=== PATIENT | female | born 1960 | race American Indian/Alaskan Native ===

== ENCOUNTER 2020-04-13 13:24 | Emergency (ER) | payer MEDICAID ==
[2020-04-13] MEDS ORDERED: ZIPRASIDONE MESYLATE 20 MG VIAL IM ONE (14:04)
[2020-04-13 17:27] LABS: Basophils % (Auto) 0.1 % (0.0-1.8); Hematocrit 39.7 % (30.3-42.9); Hemoglobin 13.1 gm/dl (10.1-14.3); Lymphocytes # (Auto) 2.2 K/mm3 (1.2-5.4); Lymphocytes % (Auto) 37.8 % (13.4-35.0); Mean Corpuscular HGB Conc 33 % (30-34); Mean Corpuscular Volume 94 fl (79-97); Monocytes # (Auto) 0.4 K/mm3 (0.0-0.8); Monocytes % (Auto) 7.8 % (0.0-7.3); Platelet Count 274 K/mm3 (140-440); Red Blood Count 4.21 M/mm3 (3.65-5.03); Red Cell Distribution Width 13.8 % (13.2-15.2)
[2020-04-13 17:46] LABS: Blood Urea Nitrogen 26 mg/dL (7-17); Calcium 9.1 mg/dL (8.4-10.2); Hemolysis Index 8
[2020-04-13 17:56] LABS: BUN/Creatinine Ratio 37
--- NOTE | 2020-04-13 18:33 | Emergency Department Report ---
ED Psych HPI - General Chief Complaint: Medical Clearance Stated Complaint: MED CLEARANCE Time Seen by Provider: 04/13/20 13:52 Source: patient, family Mode of arrival: Ambulatory Limitations: Altered Mental Status - History of Present Illness Initial Comments: 60-year-old female the past medical history of dementia, hypertension, and bipolar disorder is brought in by her daughter for progressively worsening combative behavior. Patient has been exhibiting this behavior for the last 2 years but has been Uncontrollable and worse for the last 2 months. Daughter states medications were adjusted as an outpatient without improvement. Patient is not agreeable to physical examination and is refusing to speak to me. Patient is however agitated while daughter is giving history of present illness. - Related Data Home Medications Medication Instructions Recorded Confirmed Last Taken Cyanocobalamin [Vitamin B-12] 100 mcg PO DAILY 04/13/20 04/13/20 Unknown Doxepin [SINEquan] 25 mg PO BID 04/13/20 04/13/20 Unknown Lisinopril/Hydrochlorothiazide 10 - 12.5 mg PO QDAY 04/13/20 04/13/20 Unknown Previous Rx's Medication Instructions Recorded Last Taken Type ALBUTEROL NEB's [Proventil 0.083% 2.5 mg IH TID PRN #30 neb 08/15/13 Unknown Rx NEBS] Loratadine (Nf) [Claritin] 10 mg PO DAILY #20 tablet 08/15/13 Unknown Rx Allergies Allergy/AdvReac Type Severity Reaction Status Date / Time No Known Allergies Allergy Verified 08/15/13 21:34 ED Review of Systems ROS: Stated complaint: MED CLEARANCE Other details as noted in HPI Comment: Unobtainable due to pts medical conditions ED Past Medical Hx - Past Medical History Previous Medical History?: Yes Hx Hypertension: Yes Hx Psychiatric Treatment: Yes (bipolar) Hx Dementia: Yes - Surgical History Past Surgical History?: No - Social History Smoking Status: Never Smoker Substance Use Type: None - Medications Home Medications: Home Medications Medication Instructions Recorded Confirmed Last Taken Type ALBUTEROL NEB's [Proventil 0.083% 2.5 mg IH TID PRN #30 neb 08/15/13 04/13/20 Unknown Rx NEBS] Loratadine (Nf) [Claritin] 10 mg PO DAILY #20 tablet 08/15/13 04/13/20 Unknown Rx Cyanocobalamin [Vitamin B-12] 100 mcg PO DAILY 04/13/20 04/13/20 Unknown History Doxepin [SINEquan] 25 mg PO BID 04/13/20 04/13/20 Unknown History Lisinopril/Hydrochlorothiazide 10 - 12.5 mg PO QDAY 04/13/20 04/13/20 Unknown History ED Physical Exam - General Limitations: Altered Mental Status - Other Other exam information: General: No acute distress Head: Atraumatic Eyes: normal appearance ENT: Moist mucous membranes Neck: Normal appearance, no midline tenderness Chest: Clear to auscultation bilaterally CV: Regular rate and rhythm Abdomen: Soft, normal bowel sounds, nontender, nondistended, no rebound or guarding Back: Normal inspection Extremity: Normal inspection, full range of motion Neuro: Alert no facial asymmetry, speech clear, no gross motor sensory deficit Psych: Disorganized, agitated, combative Skin: No rash ED Course Vital Signs 04/13/20 04/13/20 04/13/20 14:15 19:55 20:10 Temperature 97.9 F 97.5 F L Pulse Rate 79 95 H Respiratory 20 18 18 Rate Blood Pressure 135/75 141/85 [Left] O2 Sat by Pulse 98 97 97 Oximetry 04/14/20 04/14/20 04/14/20 01:05 09:46 19:54 Temperature 97.5 F L 98 F 98.5 F Pulse Rate 58 L 66 65 Respiratory 18 18 18 Rate Blood Pressure 156/94 124/82 141/81 [Left] O2 Sat by Pulse 100 98 100 Oximetry ED Medical Decision Making - Lab Data Result diagrams: 04/13/20 16:24 04/13/20 16:24 Lab Results 04/13/20 04/13/20 04/13/20 Range/Units 16:24 16:24 16:24 WBC 5.7 (4.5-11.0) K/mm3 RBC 4.21 (3.65-5.03) M/mm3 Hgb 13.1 (10.1-14.3) gm/dl Hct 39.7 (30.3-42.9) % MCV 94 (79-97) fl MCH 31 (28-32) pg MCHC 33 (30-34) % RDW 13.8 (13.2-15.2) % Plt Count 274 (140-440) K/mm3 Lymph % (Auto) 37.8 H (13.4-35.0) % [place] % (Auto) 7.8 H (0.0-7.3) % Eos % (Auto) 0.0 (0.0-4.3) % Baso % (Auto) 0.1 (0.0-1.8) % Lymph # 2.2 (1.2-5.4) K/mm3 [place] # 0.4 (0.0-0.8) K/mm3 Eos # 0.0 (0.0-0.4) K/mm3 Baso # 0.0 (0.0-0.1) K/mm3 Seg Neutrophils % 54.3 (40.0-70.0) % Seg Neutrophils # 3.1 (1.8-7.7) K/mm3 Sodium 140 (137-145) mmol/L Potassium 3.6 (3.6-5.0) mmol/L Chloride 102.2 (98-107) mmol/L Carbon Dioxide 26 (22-30) mmol/L Anion Gap 15 mmol/L BUN 26 H (7-17) mg/dL Creatinine 0.7 (0.6-1.2) mg/dL Estimated GFR > 60 ml/min BUN/Creatinine Ratio 37 % Glucose 90 (65-100) mg/dL Calcium 9.1 (8.4-10.2) mg/dL Urine Color (Yellow) Urine Turbidity (Clear) Urine pH (5.0-7.0) Ur Specific [place] (1.003-1.030) Urine Protein (Negative) mg/dL Urine Glucose (UA) (Negative) mg/dL Urine Ketones (Negative) mg/dL Urine Blood (Negative) Urine Nitrite (Negative) Urine Bilirubin (Negative) Urine Urobilinogen (<2.0) mg/dL Ur Leukocyte Esterase (Negative) Urine WBC (Auto) (0.0-6.0) /HPF Urine RBC (Auto) (0.0-6.0) /HPF U Epithel Cells (Auto) (0-13.0) /HPF Urine Mucus /HPF Salicylates < 0.3 L (2.8-20.0) mg/dL Urine Opiates Screen Urine Methadone Screen Acetaminophen (10.0-30.0) ug/mL Ur Barbiturates Screen Ur Phencyclidine Scrn Ur Amphetamines Screen U Benzodiazepines Scrn Urine Cocaine Screen U Marijuana (THC) Screen Drugs of Abuse Note Plasma/Serum Alcohol (0-0.07) % Coronavirus (PCR) (Negative) 04/13/20 04/13/20 04/13/20 Range/Units 16:24 16:24 Unknown WBC (4.5-11.0) K/mm3 RBC (3.65-5.03) M/mm3 Hgb (10.1-14.3) gm/dl Hct (30.3-42.9) % MCV (79-97) fl MCH (28-32) pg MCHC (30-34) % RDW (13.2-15.2) % Plt Count (140-440) K/mm3 Lymph % (Auto) (13.4-35.0) % [place] % (Auto) (0.0-7.3) % Eos % (Auto) (0.0-4.3) % Baso % (Auto) (0.0-1.8) % Lymph # (1.2-5.4) K/mm3 [place] # (0.0-0.8) K/mm3 Eos # (0.0-0.4) K/mm3 Baso # (0.0-0.1) K/mm3 Seg Neutrophils % (40.0-70.0) % Seg Neutrophils # (1.8-7.7) K/mm3 Sodium (137-145) mmol/L Potassium (3.6-5.0) mmol/L Chloride (98-107) mmol/L Carbon Dioxide (22-30) mmol/L Anion Gap mmol/L BUN (7-17) mg/dL Creatinine (0.6-1.2) mg/dL Estimated GFR ml/min BUN/Creatinine Ratio % Glucose (65-100) mg/dL Calcium (8.4-10.2) mg/dL Urine Color Yellow (Yellow) Urine Turbidity Cloudy (Clear) Urine pH 5.0 (5.0-7.0) Ur Specific [place] 1.028 (1.003-1.030) Urine Protein 30 mg/dl (Negative) mg/dL Urine Glucose (UA) Neg (Negative) mg/dL Urine Ketones Neg (Negative) mg/dL Urine Blood Mod (Negative) Urine Nitrite Neg (Negative) Urine Bilirubin Neg (Negative) Urine Urobilinogen 2.0 (<2.0) mg/dL Ur Leukocyte Esterase Lg (Negative) Urine WBC (Auto) 82.0 H (0.0-6.0) /HPF Urine RBC (Auto) 18.0 (0.0-6.0) /HPF U Epithel Cells (Auto) 30.0 H (0-13.0) /HPF Urine Mucus Few /HPF Salicylates (2.8-20.0) mg/dL Urine Opiates Screen Urine Methadone Screen Acetaminophen 5.0 L (10.0-30.0) ug/mL Ur Barbiturates Screen Ur Phencyclidine Scrn Ur Amphetamines Screen U Benzodiazepines Scrn Urine Cocaine Screen U Marijuana (THC) Screen Drugs of Abuse Note Plasma/Serum Alcohol < 0.01 (0-0.07) % Coronavirus (PCR) (Negative) 04/13/20 04/14/20 Range/Units Unknown 09:26 WBC (4.5-11.0) K/mm3 RBC (3.65-5.03) M/mm3 Hgb (10.1-14.3) gm/dl Hct (30.3-42.9) % MCV (79-97) fl MCH (28-32) pg MCHC (30-34) % RDW (13.2-15.2) % Plt Count (140-440) K/mm3 Lymph % (Auto) (13.4-35.0) % [place] % (Auto) (0.0-7.3) % Eos % (Auto) (0.0-4.3) % Baso % (Auto) (0.0-1.8) % Lymph # (1.2-5.4) K/mm3 [place] # (0.0-0.8) K/mm3 Eos # (0.0-0.4) K/mm3 Baso # (0.0-0.1) K/mm3 Seg Neutrophils % (40.0-70.0) % Seg Neutrophils # (1.8-7.7) K/mm3 Sodium (137-145) mmol/L Potassium (3.6-5.0) mmol/L Chloride (98-107) mmol/L Carbon Dioxide (22-30) mmol/L Anion Gap mmol/L BUN (7-17) mg/dL Creatinine (0.6-1.2) mg/dL Estimated GFR ml/min BUN/Creatinine Ratio % Glucose (65-100) mg/dL Calcium (8.4-10.2) mg/dL Urine Color (Yellow) Urine Turbidity (Clear) Urine pH (5.0-7.0) Ur Specific [place] (1.003-1.030) Urine Protein (Negative) mg/dL Urine Glucose (UA) (Negative) mg/dL Urine Ketones (Negative) mg/dL Urine Blood (Negative) Urine Nitrite (Negative) Urine Bilirubin (Negative) Urine Urobilinogen (<2.0) mg/dL Ur Leukocyte Esterase (Negative) Urine WBC (Auto) (0.0-6.0) /HPF Urine RBC (Auto) (0.0-6.0) /HPF U Epithel Cells (Auto) (0-13.0) /HPF Urine Mucus /HPF Salicylates (2.8-20.0) mg/dL Urine Opiates Screen Presumptive negative Urine Methadone Screen Presumptive negative Acetaminophen (10.0-30.0) ug/mL Ur Barbiturates Screen Presumptive negative Ur Phencyclidine Scrn Presumptive negative Ur Amphetamines Screen Presumptive negative U Benzodiazepines Scrn Presumptive negative Urine Cocaine Screen Presumptive negative U Marijuana (THC) Screen Presumptive negative Drugs of Abuse Note Disclamer Plasma/Serum Alcohol (0-0.07) % Coronavirus (PCR) Negative (Negative) - Medical Decision Making Patient is more calm and cooperative after Geodon and no longer combative. UA collection pending as of 04/13 9:30 PM. Patient signed out to oncoming provider Dr. Virgen to follow-up UA when available to complete medical clearance. Coronavirus test ordered as per mental health request to assist with placement UA likely a contaminated sample due to elevated wbc and epi cells, no nitrates or bacteria noted Critical Care Time: No Critical care attestation.: If time is entered above; I have spent that time in minutes in the direct care o f this critically ill patient, excluding procedure time. ED Disposition Clinical Impression: Aggressive behavior due to dementia, Bipolar disorder, Medical clearance for psychiatric admission Disposition: [id number] PSY HOSP/PSY UNIT Is pt being admited?: No Condition: Stable
[2020-04-14 00:45] LABS: Bilirubin,Urine NEG (Negative); Blood,Urine MOD (Negative); Color,Urine Yellow (Yellow); Mucus,Urine FEW /HPF
[2020-04-14 00:52] LABS: Amphetamine Screen,Urine PRESUMPTIVE NEGATIVE; Benzodiazepines Screen,Urine PRESUMPTIVE NEGATIVE; Cannabinoid Screen,Urine PRESUMPTIVE NEGATIVE; Cocaine Screen,Urine PRESUMPTIVE NEGATIVE; Methadone Screen,Urine PRESUMPTIVE NEGATIVE; Opiate Screen,Urine PRESUMPTIVE NEGATIVE
--- NOTE | 2020-04-14 09:21 | Consultation ---
History of Present Illness - Reason for Consult Consult date: 04/14/20 Reason for consult: MHE Requesting physician: KARINA TRAVIS - Chief Complaint Chief complaint: Behv disturbance - History of Present Psychiatric Illness Per ED Provider: 60-year-old female the past medical history of dementia, hypertension, and bipolar disorder is brought in by her daughter for progressiv kathryn worsening combative behavior. Patient has been exhibiting this behavior for the last 2 years but has been Uncontrollable and worse for the last 2 months. Daughter states medications were adjusted as an outpatient without improvement. Patient is not agreeable to physical examination and is refusing to speak to me. Patient is however agitated while daughter is giving history of present illne ss. HPI Patient is a 60 year old Female with past Psychiatric history of bipolar and dementia present to ED by daughter with complaints of progre ssively worsening combative behavior. Patient seen in ED, described herself as a girl, says oriented to being in a mental health facility because everybody has been messing with her, spoke about money situation, then wants to take a shower because she is messed up with stuff while looking down on her own body. This patient had to be redirected multiple times, appears disorganized. Patient says nothing is coming out of her body even though she had tried washing it, says she is not mental, she has all of her senses, then started pacing in the room. Patient says she does not have kids, then admits to having daughters whom she does not care about. PAST PSYCHIATRIC HISTORY: Diagnoses: Dementia Suicide attempts or Self-harm behavior: n/a Prior psychiatric hospitalizations: n/a Substance Abuse history: n/a Previous psychiatric medications tried: n/a Outpatient treatment: n/a PAST MEDICAL HISTORY: Family Psychiatric History: None reported or documented SOCIAL HISTORY Marital Status: n/a Living Arrangements: Assisted living facility Employment Status: n/a Access to guns/weapons: n/a Education: n/a History of Abuse: n/a Legal History: n/a REVIEW OF SYSTEMS ROS cannot be reliably obtained from the patient due to her confusion and somnolence. MENTAL STATUS EXAMINATION General Appearance and Behavior: Age appropriate, good hygiene, wearing appropriate clothes, good eye contact, cooperative polite with questioning. Cooperation: Participating/engaged Psychomotor Behavior: unremarkable and within normal limits Mood: Good Affect and affective range: congruent with mood Thought Process: loose association, disorganized, Thought Content: Illogical, Speech: Normal volume, Regular rate and rhythm Intellectual Functioning: Average Suicidal Ideation: n/a Homicidal Ideation: n/a Impulse Control: Impaired Insight and Judgment: Limited insight and judgment Memory: impaired Attention: distracted Orientation: Alert but confused and demented Assessment and Plan - Psychiatric problem (1) Dementia with behavioral disturbance Current Visit: Yes Status: Acute Treatment Plan MEDICATIONS: started on meds Risks, benefits and alternatives of medications discussed with the patient, questions answered and consent obtained from patient. PSYCHOTHERAPY: Supportive psychotherapy provided MEDICAL: Per primary team DELIRIUM PRECAUTIONS: Please re-orient patient frequently, keep lights on during the day, and minimize benzodiazepines and opiates as these medications could worsen patient's confusion. CLIENT RELATION SPECIALIST: DISPOSITION: Do Recommend acute inpatient psychiatric hospitalization at this time LEGAL STATUS: 1013 FOLLOW-UP: Will follow Thank you for the consult. Please contact with any questions and/or concerns. Medications and Allergies Allergies Allergy/AdvReac Type Severity Reaction Status Date / Time No Known Allergies Allergy Verified 08/15/13 21:34 Home Medications Medication Instructions Recorded Confirmed Last Taken Type ALBUTEROL NEB's [Proventil 0.083% 2.5 mg IH TID PRN #30 neb 08/15/13 04/13/20 Unknown Rx NEBS] Loratadine (Nf) [Claritin] 10 mg PO DAILY #20 tablet 08/15/13 04/13/20 Unknown Rx Cyanocobalamin [Vitamin B-12] 100 mcg PO DAILY 04/13/20 04/13/20 Unknown History Doxepin [SINEquan] 25 mg PO BID 04/13/20 04/13/20 Unknown History Lisinopril/Hydrochlorothiazide 10 - 12.5 mg PO QDAY 04/13/20 04/13/20 Unknown History Active Meds: Active Medications Trimethoprim/Sulfamethoxazole (Bactrim Ds) 1 each PO Q12HR RASHID Stop: 04/16/20 22:01 Mental Status Exam - Vital signs Last Vital Signs Temp 97.5 F L 04/14/20 01:05 Pulse 58 L 04/14/20 01:05 Resp 18 04/14/20 01:05 BP 156/94 04/14/20 01:05 Pulse Ox 100 04/14/20 01:05 Results Result Diagrams: 04/13/20 16:24 04/13/20 16:24 Abnormal lab results 04/13/20 04/13/20 04/13/20 Range/Units 16:24 16:24 16:24 Lymph % (Auto) 37.8 H (13.4-35.0) % [place] % (Auto) 7.8 H (0.0-7.3) % BUN 26 H (7-17) mg/dL Urine WBC (Auto) (0.0-6.0) /HPF U Epithel Cells (Auto) (0-13.0) /HPF Salicylates < 0.3 L (2.8-20.0) mg/dL Acetaminophen (10.0-30.0) ug/mL 04/13/20 04/13/20 Range/Units 16:24 Unknown Lymph % (Auto) (13.4-35.0) % [place] % (Auto) (0.0-7.3) % BUN (7-17) mg/dL Urine WBC (Auto) 82.0 H (0.0-6.0) /HPF U Epithel Cells (Auto) 30.0 H (0-13.0) /HPF Salicylates (2.8-20.0) mg/dL Acetaminophen 5.0 L (10.0-30.0) ug/mL All other labs normal. Assessment and Plan - Psychiatric problem (1) Dementia with behavioral disturbance Current Visit: Yes Status: Acute
[2020-04-14] MEDS: SULFAMETHOXAZOLE/TRIMETHOPRIM 800/160MG DS TAB PO SCH ×2 (09:49→21:29)
[2020-04-14] MEDS: VALPROIC ACID 250 MG/5 ML ORAL LIQD PO SCH ×2 (13:12→21:30)
[2020-04-14 19:56] VITALS: BP 141/81
[2020-04-14] MEDS ORDERED: QUEtiapine 25 MG TAB PO SCH (22:00)
== END 2020-04-14 22:00 ==
LOC: ED 13:24
DX: F31.9 Bipolar disorder, unspecified (principal); I10 Essential (primary) hypertension; F03.91 Unspecified dementia, unspecified severity, with behavioral disturbance; Z79.899 Other long term (current) drug therapy
CPT/HCPCS: 36415; 80048; 80307; 81001; 85025; 87086; 96372; 99285; J3486; U0003; 80320; G0480